=== PATIENT | male | born 1985 | race Caucasian/White ===

== ENCOUNTER 2018-01-13 20:27 | Emergency (ER) | payer OTHER ==
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
[2018-01-13 22:44] VITALS: BP 135/84
== END 2018-01-13 22:46 | disposition home or self-care (01) ==
LOC: ER 20:27
DX: S20.219A Contusion of unspecified front wall of thorax, initial encounter (principal); S80.02XA Contusion of left knee, initial encounter; R07.9 Chest pain, unspecified; M25.562 Pain in left knee; V49.40XA Driver injured in collision with unspecified motor vehicles in traffic accident, initial encounter
CPT/HCPCS: 71046; 99284